=== PATIENT | male | born 1945 | race Caucasian/White ===

== ENCOUNTER 2024-10-02 18:29 | Emergency (ER) | payer MEDICARE, OTHER ==
[2024-10-02] MEDS: Acetaminophen 500 MG Tab PO ONE (19:38)
[2024-10-02] MEDS: Sodium Chloride 0.9% 1,000 ML IV SCH (19:39)
[2024-10-02] MEDS: cefTRIAXone 1 GM in Sodium Chloride 0.9% 50 ML IV SCH (19:40)
[2024-10-02 19:43] LABS: BASOPHILS ABSOLUTE AUTO 0.06 K/uL (0.00-0.10); BASOPHILS PERCENT AUTO 0.4 % (0.1-1.3); EOSINOPHILS ABSOLUTE AUTO 0.05 K/uL (0.00-0.40); EOSINOPHILS PERCENT AUTO 0.4 % (0.0-5.4); HEMATOCRIT 41.2 % (38.4-49.7); HEMOGLOBIN 13.5 g/dL (12.9-16.9); IMMATURE GRAN ABSOLUTE AUTO 0.06 K/uL (0.00-0.23); IMMATURE GRAN PERCENT AUTO 0.4 % (0.0-0.7); LYMPHOCYTES ABSOLUTE AUTO 1.41 K/uL (0.8-3.3); LYMPHOCYTES PERCENT AUTO 10.3 % (11.4-47.7); MEAN CORPUSCULAR HEMOGLOBIN 31.6 pg (31.6-35.5); MEAN CORPUSCULAR HGB CONC 32.8 g/dL (31.6-35.5); MEAN CORPUSCULAR VOLUME 96.5 fL (81.4-99.0); MONOCYTES ABSOLUTE AUTO 1.77 K/uL (0.20-0.90); NEUTROPHILS ABSOLUTE AUTO 10.31 K/uL (1.0-7.6); NEUTROPHILS PERCENT AUTO 75.5 % (40.0-78.1); PLATELET COUNT,PLT 201 K/uL (130-375); RED BLOOD CELL COUNT 4.27 M/uL (4.14-5.76); WHITE BLOOD CELL COUNT,WBC 13.7 K/uL (3.2-11.0)
[2024-10-02] MEDS: Azithromycin 500 MG in Sodium Chloride 0.9% 250 ML IV SCH (19:46)
[2024-10-02 20:05] LABS: ALANINE AMINOTRANSFERASE,ALT 28 U/L (12-78); ALBUMIN 3.4 g/dL (3.4-5.0); ALKALINE PHOSPHATASE 64 U/L (46-116); ASPARTATE AMNIOTRANSFERASE,AST 21 U/L (15-37); BILIRUBIN TOTAL 0.4 mg/dL (0.2-1.0); BLOOD UREA NITROGEN,BUN 24 mg/dL (7-18); C-REACTIVE PROTEIN 8.05 mg/dL (<0.50); CALCIUM 9.5 mg/dL (8.5-10.1); CARBON DIOXIDE,CO2 33 mmol/L (21-32); CHLORIDE,CL 98 mmol/L (100-108); CREATININE 1.9 mg/dL (0.8-1.3); EST CRCL DRUG DOSING (CG) 32.04 mL/min; ESTIMATED GFR 36 mL/min (>60); GLUCOSE RANDOM 124 mg/dL (74-106); POTASSIUM,K 3.3 mmol/L (3.6-5.2); PROTEIN TOTAL,TP 6.9 g/dL (6.4-8.2); SODIUM,NA 140 mmol/L (140-148)
[2024-10-02 20:06] LABS: ANION GAP 12.3 mmol/L (5.0-14.0)
[2024-10-02 20:08] LABS: LACTIC ACID 0.9 mmol/L (0.4-2.0)
[2024-10-02 20:11] LABS: APPEARANCE,URINE CLEAR (CLEAR); BILIRUBIN,URINE NEGATIVE (NEGATIVE); COLOR,URINE YELLOW (YELLOW); GLUCOSE,URINE NEGATIVE (NEGATIVE); KETONES,URINE NEGATIVE (NEGATIVE); LEUKOCYTE ESTERASE,URINE NEGATIVE (NEGATIVE); NITRITE,URINE NEGATIVE (NEGATIVE); OCCULT BLOOD,URINE SMALL (NEGATIVE); PROTEIN,URINE 30 mg/dL (NEGATIVE)
[2024-10-02 20:19] LABS: AMORPHOUS SEDIMENT,URINE FEW; BACTERIA,URINE NOT SEEN; EPITHELIAL CELLS,URINE NOT SEEN; MUCUS,URINE RARE; WBC,URINE 0-5 (0-5)
[2024-10-02] MEDS: Albuterol/Ipratropium 3.0-0.5 MG/3 ML Neb Soln NEB ONE (20:46)
== END 2024-10-02 22:00 | disposition home or self-care (01) ==
LOC: JP.ED 18:29
DX: U07.1 COVID-19 (principal); I10 Essential (primary) hypertension; Z79.899 Other long term (current) drug therapy; Z88.0 Allergy status to penicillin; Z90.49 Acquired absence of other specified parts of digestive tract
CPT/HCPCS: 36415; 71045; 80053; 81001; 83605; 83880; 85025; 86140; 87040; 94640; 96365; 96367; 99284; 99285; A9270; J0456; J0696; J7030; J7050; U0002

== ENCOUNTER 2024-10-03 16:21 | Inpatient (IN) | payer MEDICARE, OTHER ==
[2024-10-03 17:04] LABS: BASOPHILS ABSOLUTE AUTO 0.06 K/uL (0.00-0.10); BASOPHILS PERCENT AUTO 0.3 % (0.1-1.3); EOSINOPHILS PERCENT AUTO 0.1 % (0.0-5.4); IMMATURE GRAN ABSOLUTE AUTO 0.13 K/uL (0.00-0.23); IMMATURE GRAN PERCENT AUTO 0.7 % (0.0-0.7); LYMPHOCYTES ABSOLUTE AUTO 1.18 K/uL (0.8-3.3); LYMPHOCYTES PERCENT AUTO 6.1 % (11.4-47.7); MONOCYTES ABSOLUTE AUTO 1.65 K/uL (0.20-0.90); MONOCYTES PERCENT AUTO 8.5 % (3.3-12.6); NEUTROPHILS ABSOLUTE AUTO 16.34 K/uL (1.0-7.6); NEUTROPHILS PERCENT AUTO 84.3 % (40.0-78.1); PLATELET COUNT,PLT 239 K/uL (130-375); RED BLOOD CELL COUNT 4.36 M/uL (4.14-5.76); WHITE BLOOD CELL COUNT,WBC 19.4 K/uL (3.2-11.0)
[2024-10-03] MEDS: Sodium Chloride 0.9% 10 ML Syringe FLUSH PRN (17:04)
[2024-10-03 17:09] LABS: EOSINOPHILS ABSOLUTE AUTO 0.02 K/uL (0.00-0.40)
[2024-10-03 17:28] LABS: A/G RATIO 0.9 (1.2-2.2); ALANINE AMINOTRANSFERASE,ALT 30 U/L (12-78); ASPARTATE AMNIOTRANSFERASE,AST 32 U/L (15-37); BILIRUBIN TOTAL 0.6 mg/dL (0.2-1.0); BLOOD UREA NITROGEN,BUN 25 mg/dL (7-18); CARBON DIOXIDE,CO2 31 mmol/L (21-32); CHLORIDE,CL 98 mmol/L (100-108); CREATININE 1.9 mg/dL (0.8-1.3); EST CRCL DRUG DOSING (CG) 32.04 mL/min; ESTIMATED GFR 36 mL/min (>60); GLUCOSE RANDOM 147 mg/dL (74-106); POTASSIUM,K 3.5 mmol/L (3.6-5.2); PROTEIN TOTAL,TP 7.5 g/dL (6.4-8.2); SODIUM,NA 139 mmol/L (140-148)
[2024-10-03 17:30] LABS: LACTIC ACID 2.6 mmol/L (0.4-2.0)
[2024-10-03] MEDS: Dexamethasone 4 MG/ML SDV IVPUSH ONE (17:48)
[2024-10-03] MEDS: Acetaminophen 1,000 MG in Premix Bag 1 BAG IV ONE (17:54)
[2024-10-03] MEDS: Iopamidol 755 Mg/ML 100 ML Bottle IV SCH (18:42)
[2024-10-03] MEDS ORDERED: Ondansetron 4 MG Tab.DIS PO PRN (21:18)
[2024-10-03] MEDS ORDERED: Ondansetron 4 MG/2 ML SDV IV PRN (21:18)
[2024-10-03] MEDS ORDERED: Codeine/guaiFENesin 10-100 MG/5 ML Syrup 5 ML Cup PO PRN (21:18)
[2024-10-03] MEDS ORDERED: Magnesium Hydroxide 400 MG/5 ML Susp 30 ML Cup PO PRN (21:18)
[2024-10-03] MEDS: Lactobacillus Rhamnosus GG (Probiotic) Cap PO SCH (21:49)
[2024-10-03 22:03] LABS: A/G RATIO 0.8 (1.2-2.2); ALANINE AMINOTRANSFERASE,ALT 27.0 U/L (12-78); ASPARTATE AMNIOTRANSFERASE,AST 25.0 U/L (15-37); BILIRUBIN DIRECT 0.13 mg/dL (0.0-0.2); BILIRUBIN INDIRECT 0.17; BILIRUBIN TOTAL 0.3 mg/dL (0.2-1.0); PROTEIN TOTAL,TP 6.6 g/dL (6.4-8.2)
[2024-10-04 05:16] LABS: PLATELET COUNT,PLT 188.0 K/uL (130-375); RED BLOOD CELL COUNT 4.09 M/uL (4.14-5.76); WHITE BLOOD CELL COUNT,WBC 21.8 K/uL (3.2-11.0)
[2024-10-04 05:31] LABS: BLOOD UREA NITROGEN,BUN 20.0 mg/dL (7-18); CARBON DIOXIDE,CO2 27.0 mmol/L (21-32); CHLORIDE,CL 104.0 mmol/L (100-108); CREATININE 1.6 mg/dL (0.8-1.3); EST CRCL DRUG DOSING (CG) 38.05 mL/min; ESTIMATED GFR 44.0 mL/min (>60); GLUCOSE RANDOM 189.0 mg/dL (74-106); POTASSIUM,K 3.5 mmol/L (3.6-5.2); SODIUM,NA 141.0 mmol/L (140-148)
[2024-10-04 05:39] LABS: A/G RATIO 0.8 (1.2-2.2); ALANINE AMINOTRANSFERASE,ALT 24 U/L (12-78); ASPARTATE AMNIOTRANSFERASE,AST 24 U/L (15-37); BILIRUBIN DIRECT 0.07 mg/dL (0.0-0.2); BILIRUBIN TOTAL 0.2 mg/dL (0.2-1.0); PROTEIN TOTAL,TP 6.7 g/dL (6.4-8.2)
[2024-10-04] MEDS ORDERED: DABIGATRAN 150 MG PO SCH ×2 (09:00)
[2024-10-04] MEDS: Sennosides/Docusate Sodium 50-8.6 MG Tab PO PRN (10:29)
[2024-10-04] MEDS ORDERED: Sodium Chloride 0.9% 10 ML Syringe IV PRN (10:38)
[2024-10-04] MEDS: DABIGATRAN 150 MG PO SCH (11:02)
[2024-10-04] MEDS: Dexamethasone 4 MG/ML SDV IVPUSH SCH (16:37)
[2024-10-04] MEDS: Potassium Chloride 20 MEQ Tab.ER PO ONE (19:41)
[2024-10-04] MEDS ORDERED: Non-Formulary Medication 1 Each (Simvastatin [Simvastatin] 40 MG Tablet) PO SCH (21:00)
[2024-10-05 05:57] LABS: PLATELET COUNT,PLT 232.0 K/uL (130-375); RED BLOOD CELL COUNT 4.15 M/uL (4.14-5.76); WHITE BLOOD CELL COUNT,WBC 22.6 K/uL (3.2-11.0)
[2024-10-05 06:18] LABS: BLOOD UREA NITROGEN,BUN 30.0 mg/dL (7-18); CARBON DIOXIDE,CO2 26.0 mmol/L (21-32); CHLORIDE,CL 102.0 mmol/L (100-108); CREATININE 1.4 mg/dL (0.8-1.3); EST CRCL DRUG DOSING (CG) 43.49 mL/min; ESTIMATED GFR 51.0 mL/min (>60); GLUCOSE RANDOM 160.0 mg/dL (74-106); POTASSIUM,K 3.8 mmol/L (3.6-5.2); SODIUM,NA 139.0 mmol/L (140-148)
[2024-10-05] MEDS: Sodium Chloride 0.9% 10 ML Syringe FLUSH ONE (07:16)
== END 2024-10-05 11:36 | disposition home or self-care (01) | DRG 871 ==
LOC: JP.ED 16:21 → JP.MS 20:17
PROVIDERS: ADMIT Registered Nurse; ATTEND Hospitalist
PROC: 3E03329 Introduction of Other Anti-infective into Peripheral Vein, Percutaneous Approach (ICD-10-PCS; principal; 2024-10-03)
PROC: XW033E5 Introduction of Remdesivir Anti-infective into Peripheral Vein, Percutaneous Approach, New Technology Group 5 (ICD-10-PCS; principal; 2024-10-03)
DX: A41.89 Other specified sepsis (principal); J12.82 Pneumonia due to coronavirus disease 2019; J18.9 Pneumonia, unspecified organism; I10 Essential (primary) hypertension; U07.1 COVID-19; J96.01 Acute respiratory failure with hypoxia; H91.90 Unspecified hearing loss, unspecified ear; H54.7 Unspecified visual loss; I48.91 Unspecified atrial fibrillation; Z79.02 Long term (current) use of antithrombotics/antiplatelets; N18.9 Chronic kidney disease, unspecified; I12.9 Hypertensive chronic kidney disease with stage 1 through stage 4 chronic kidney disease, or unspecified chronic kidney disease; E78.00 Pure hypercholesterolemia, unspecified; E86.0 Dehydration; G62.9 Polyneuropathy, unspecified; Z79.01 Long term (current) use of anticoagulants; Z86.16 Personal history of COVID-19; Z90.49 Acquired absence of other specified parts of digestive tract; Z98.49 Cataract extraction status, unspecified eye; Z79.899 Other long term (current) drug therapy; Z88.0 Allergy status to penicillin; Z96.659 Presence of unspecified artificial knee joint; Z96.619 Presence of unspecified artificial shoulder joint; Z87.891 Personal history of nicotine dependence
CPT/HCPCS: 36415; 71045; 71045-26; 71275; 80048; 80053; 80076; 83605; 83735; 85025; 85027; 86140; 87040; 99285; A9270-GY; J0131; J0696; J1100; J3490; J7030; J7050; Q9967